=== PATIENT | male | born 1990 | race Hispanic/Latino ===

== ENCOUNTER 2024-05-25 15:15 | Emergency (ER) | payer BC ==
[2024-05-25 15:59] LABS: Absolute Basophils 0.1 K/uL (0-0.5); Absolute Eosinophils 0.2 K/uL (0-0.5); Absolute Lymphocytes (CBC) 1.6 K/uL (0.7-4.9); Absolute Monocytes 0.6 K/uL (0.1-1.3); Absolute Neutrophil 10.7 K/uL (1.8-8.0); Basophils % 0.6 % (0-1.3); Eosinophils % 1.4 % (0-4.4); Hematocrit 47.1 % (39.6-49.0); Hemoglobin 16.1 g/dL (13.6-17.9); MCH 29.6 pg (27.0-35.0); MCHC 34.2 g/dL (32.0-36.0); MCV 86.5 fL (80-100); MPV 8.5 fL (7.6-11.3); Monocytes % 4.7 % (3.3-12.3); Neutrophils % 81.3 % (41.7-73.7); Platelets 295 thou/uL (152-406); RBC Red Blood Cell Count 5.45 M/uL (4.33-5.43); Red Cell Distribution Width 13.7 % (12.1-15.2)
--- NOTE | 2024-05-25 15:59 | RAD REPORT ---
EXAM: Chest Single View HISTORY: CHEST PAIN COMPARISON: None. FINDINGS: LUNGS/PLEURA: The lungs are clear. No pleural effusions or pneumothorax. No pulmonary edema. MEDIASTINUM: The mediastinal silhouette is within normal limits. CARDIAC: The cardiac silhouette is within normal limits. UPPER ABDOMEN: No significant abnormality. BONES: No acute abnormality. LINES/TUBES/OTHER: N/A IMPRESSION: No evidence of acute cardiopulmonary disease.
[2024-05-25 16:16] LABS: ALT/SGPT 31 U/L (16-61); AST/SGOT 21 U/L (15-37); Albumin 4.2 g/dL (3.4-5.0); Albumin/Globulin Ratio 1.2 (1.1-1.8); Alkaline Phosphatase 68 U/L (45-117); Anion Gap 10.8 mEq/L (5.0-15.0); BUN Blood Urea Nitrogen 12 mg/dL (7-18); Bicarbonate 25 mEq/L (21-32); Bilirubin Total 0.7 mg/dL (0.2-1.0); Globulin 3.6 g/dL (2.3-3.5); Glomerular Filtration Rate 106 ml/min (=/>90); Glucose Level 121 mg/dL (74-106); Potassium 3.8 mEq/L (3.5-5.1); Protein, Total 7.8 g/dL (6.4-8.2); Sodium Level 138 mEq/L (136-145)
[2024-05-25 16:17] LABS: NT PRO-BNP < 5 pg/mL (<125); Troponin High Sensitivity < 3.0 pg/mL (<58.9)
[2024-05-25] MEDS ORDERED: ONDANSETRON 4 MG/2 ML VIAL ONE (18:09)
[2024-05-25] MEDS ORDERED: MAGNES/ALUMIN/SIMET 30ML UCUP ONE (18:10)
[2024-05-25] MEDS ORDERED: MORPHINE 4 MG/ML SYR ONE (18:10)
[2024-05-25] MEDS ORDERED: LIDOCAINE VISCOUS 2% 10ML ORAL SOLN ONE (18:10)
[2024-05-25 18:34] LABS: SARS-CoV-2 Antigen CONTROL BLUE LINE VIS/BG OK; SARS-CoV-2 Antigen Rapid Res Negative (Negative)
--- NOTE | 2024-05-25 18:41 | EDPHYS ---
Physician Documentation [facility] Name: Chinedu Maldonado Age: 33 yrs Sex: Male : 1990 Arrival Date: 05/25/2024 Time: 15:15 Bed 9 Private MD: ED Physician Kurtis Casas HPI: 05/25 19:45 This 33 yrs old Male presents to ER via Ambulatory with complaints of Chest dr5 Pressure, CLAMY HANDS. 19:45 Patient is a 33-year-old male with no past medical history coming in with sudden onset dr5 of chest pressure with feelings of chills. Patient reports this is never had before in the past. 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 Historical: - Allergies: 15:24 No Known Allergies; ap3 - Home Meds: 15:24 None [Active]; ap3 - PMHx: 15:24 None; ap3 - Immunization history:: Client reports receiving the 2nd dose of the Covid vaccine, Flu vaccine is not up to date. - Infectious Disease History:: Denies. - Social history:: Smoking status: Reported history of juuling and/or vaping. ROS: 19:45 Constitutional: as per hpi dr5 Exam: 19:45 Constitutional: This is a well developed, well nourished patient who is awake, alert, dr5 and in no acute distress. Head/Face: Normocephalic, atraumatic. Eyes: Pupils equal round and reactive to light, extra-ocular motions intact. Lids and lashes normal. Conjunctiva and sclera are non-icteric and not injected. Cornea within normal limits. Periorbital areas with no swelling, redness, or edema. Neck: Trachea midline, no thyromegaly or masses palpated, and no cervical lymphadenopathy. Supple, full range of motion without nuchal rigidity, or vertebral point tenderness. No Meningismus. Chest/axilla: Normal chest wall appearance and motion. Nontender with no deformity. No lesions are appreciated. Cardiovascular: Regular rate and rhythm with a normal S1 and S2. Normal PMI, no JVD. No pulse deficits. Respiratory: Lungs have equal breath sounds bilaterally, clear to auscultation. No rales, rhonchi or wheezes noted. No increased work of breathing, no retractions or nasal flaring. Back: No spinal tenderness. No costovertebral tenderness. Full range of motion. Skin: Warm, dry with normal turgor. Normal color with no rashes, no lesions, and no evidence of cellulitis. Neuro: Awake and alert, GCS 15, oriented to person, place, time, and situation. Cranial nerves II-XII grossly intact. Motor strength 5/5 in all extremities. Sensory grossly intact. Cerebellar exam normal. Normal gait. Vital Signs: 15:22 BP 137 / 84; Pulse 84; Resp 16; Temp 98.9(O); Pulse Ox 98% on R/A; Weight 91.63 kg; ap3 Height 6 ft. 4 in. ; Pain 0/10; 15:22 Body Mass Index 24.59 (91.63 kg, 193.04 cm) ap3 15:22 Pain Scale: Adult ap3 MDM: 15:20 Medical Screening Exam initiated dr5 19:45 Differential diagnosis: viral Infection, bacterial infection, URI, ACS, GERD. Data dr5 reviewed: vital signs, nurses notes. I considered the following discharge prescriptions or medication management in the emergency department Medications were administered in the Emergency Department. See MAR. Care significantly affected by the following Social Determinants of Health: Poor access to healthcare and/or lack of insurance, Poor access to transportation, Problems related to employment. Counseling: I had a detailed discussion with the patient and/or guardian regarding the historical points, exam findings, and any diagnostic results supporting the discharge/admit diagnosis, the presence of at least one elevated blood pressure reading (>120/80) during this emergency department visit, the need for outpatient follow up, for definitive care, a family practitioner, a route delivery clerk, to return to the emergency department if symptoms worsen or persist or if there are any questions or concerns that arise at home. Medication response: GI Cocktail relieved the patient's pain. The symptoms have resolved. ED course: GI cocktail given with resolution of symptoms. Will give patient PPI to help with GERD. Recommended Pepcid as needed. Recommended patient follow-up with primary care doctor this week and GI if needed. Patient is feeling much better on discharge. No complaints. Blood work is unremarkable. All questions answered.. 05/25 15: Order name: CBC with Diff; Complete Time: 16:08 dr5 05/25 15:22 Order name: NT PRO-BNP; Complete Time: 16:36 dr5 05/25 15:22 Order name: Troponin HS; Complete Time: 16:36 [facility] 05/25 15:22 Order name: CMP; Complete Time: 16:36 [facility] 05/25 16:37 Order name: SARS RAPID; Complete Time: 18:38 [facility] 05/25 16:37 Order name: Influenza Screen (a \T\ B); Complete Time: 18:38 [facility] 05/25 15:22 Order name: XRAY Chest (1 view); Complete Time: 16:00 [facility] 05/25 15:22 Order name: EKG - Nurse/Tech; Complete Time: 15:43 [facility] 05/25 15:22 Order name: IV Saline Lock; Complete Time: 15:43 [facility] 05/25 15:22 Order name: Labs collected and sent; Complete Time: 15:43 [facility] 05/25 15:22 Order name: O2 Per Protocol; Complete Time: 18:52 [facility] 05/25 15:22 Order name: O2 Sat Monitoring; Complete Time: 18:52 dr5 EC:34 Rate is 85 beats/min. Rhythm is regular. QRS Bradley is Normal. RI interval is normal at dr5 134 msec. QRS interval is normal at 96 msec. QT interval is normal at 350 msec. Administered Medications: 18:15 Drug: GI Cocktail without - (Maalox PO 30 ml, Lidocaine Mucous Membrane 2 % 15 ap3 ml) PO once Route: PO; 18:57 Follow up: Response: No adverse reaction 7 18:15 Not Given (Patient Refused): morphineor iv 4 mg IVP once over 4 mins ap3 18:15 Not Given (Patient Refused): ondansetron 4 mg IVP once; over 2 minutes ap3 Disposition: 05/26 14:21 Co-signature as Attending Physician, Kurtis Casas MD I agree with the assessment and cesar plan of care. Disposition Summary: 05/25/24 18:40 Discharge Ordered Notes: Location: Home dr5 Condition: Stable dr5 Diagnosis - Gastro-esophageal reflux disease without esophagitis dr5 Followup: dr5 - With: Emergency Department - When: As needed - Reason: Worsening of condition Followup: dr5 - With: Private Physician - When: 1 - 2 days - Reason: Recheck today's complaints, Continuance of care, Re-evaluation by your physician Discharge Instructions: - Discharge Summary Sheet dr5 - Gastroesophageal Reflux Disease, Adult, [id number] dr5 Forms: - Work release form bd - Medication Reconciliation Form dr5 - Patient Portal Instructions dr5 - Leadership Thank You Letter dr5 Prescriptions: - Protonix 40 mg Oral Tablet - take 1 tablet ORAL route once daily; 30 tablet; Refills: 0, Product Selection dr5 Permitted Signatures: Dispatcher [employer] Kurtis Quinteros MD MD cha Prokisch, Amanda, RN RN ap3 Pedro Verde, CHEMICAL RESEARCH ENGINEER-C CHEMICAL RESEARCH ENGINEER-[facility]5 Yuri Alfaro RN jl7
--- NOTE | 2024-05-25 18:41 | ER ---
Nurse's Notes [facility] Name: Chinedu Maldonado Age: 33 yrs Sex: Male : 1990 Arrival Date: 05/25/2024 Time: 15:15 Bed 9 Private MD: Diagnosis: Gastro-esophageal reflux disease without esophagitis Presentation: 05/25 15:22 Chief complaint: Patient states: "i got a random flood of vibrations in my body and i ap3 got really clammy at about one oclock" patient denies any chest pain. patient states this has never happened before. Coronavirus screen: At this time, the client does not indicate any symptoms associated with coronavirus-19. Ebola Screen: No symptoms or risks identified at this time. Initial Sepsis Screen:. Initial Sepsis Screen: Does the patient meet any 2 criteria? No. Patient's initial sepsis screen is negative. Does the patient have a suspected source of infection? No. Patient's initial sepsis screen is negative. Risk Assessment: Do you want to hurt yourself or someone else? Patient reports no desire to harm self or others. Onset of symptoms was May 25, 2024 at 13:00. 15:22 Method Of Arrival: Ambulatory ap3 15:22 Acuity: DEJAH 2 ap3 Triage Assessment: 15:25 General: Appears in no apparent distress. Behavior is calm, cooperative, appropriate ap3 for age. Pain: Denies pain. Neuro: Level of Consciousness is awake, alert, obeys commands, Oriented to person, place, time, situation. Cardiovascular: Reports chest pressure Patient's skin is warm and dry. Respiratory: Airway is patent Respiratory effort is even, unlabored, Respiratory pattern is regular, symmetrical. Historical: - Allergies: 15:24 No Known Allergies; ap3 - Home Meds: 15:24 None [Active]; ap3 - PMHx: 15:24 None; ap3 - Immunization history:: Client reports receiving the 2nd dose of the Covid vaccine, Flu vaccine is not up to date. - Infectious Disease History:: Denies. - Social history:: Smoking status: Reported history of juuling and/or vaping. Screenin:25 [facility] ED Fall Risk Assessment (Adult) History of falling in the last 3 months, ap3 including since admission No falls in past 3 months (0 pts) Confusion or Disorientation No (0 pts) Intoxicated or Sedated No (0 pts) Impaired Gait No (0 pts) Mobility Assist Device Used No (0 pt) Altered Elimination No (0 pt) Score/Fall Risk Level 0 - 2 = Low Risk Oriented to surroundings, Maintained a safe environment, Educated pt \\T\\ family on fall prevention, incl call for assistance when getting out of bed, Assessed \\T\\ reinforced patient's understanding of fall precautions, Hourly rounding (assess needs \\T\\ fall precautionary measures) done, Used ambulatory aids as needed (educated on \\T\\ assisted with), Used gait belt as appropriate. Abuse screen: Denies threats or abuse. Nutritional screening: No deficits noted. Tuberculosis screening: No symptoms or risk factors identified. Assessment: 18:57 Reassessment: Pt seen and discharged by ADRIENNE Vasquez. ss Vital Signs: 15:22 BP 137 / 84; Pulse 84; Resp 16; Temp 98.9(O); Pulse Ox 98% on R/A; Weight 91.63 kg; ap3 Height 6 ft. 4 in. ; Pain 0/10; 15:22 Body Mass Index 24.59 (91.63 kg, 193.04 cm) ap3 15:22 Pain Scale: Adult ap3 ED Course: 15:20 Patient arrived in ED. sj2 15:20 Pedro Verde FNP-C [facility]. dr5 15:20 Kurtis Casas MD is Attending Physician. dr5 15:24 Triage completed. ap3 15:26 Arm band placed on right wrist. ap3 15:26 Patient maintains SpO2 saturation greater than 95% on room air. ap3 15:44 CBC with Diff Sent. cc6 15:44 NT PRO-BNP Sent. cc6 15:44 Troponin HS Sent. cc6 15:44 Inserted saline lock: 20 gauge in right antecubital area, using aseptic technique. cc6 Blood collected. 15:44 Initial lab(s) drawn, by me, sent to lab. cc6 15:53 XRAY Chest (1 view) In Process Unspecified. EDMS 16:00 CBC with Diff Sent. cc6 16:00 NT PRO-BNP Sent. cc6 16:00 Troponin HS Sent. cc6 18:52 Yuri Alfaro, CHRISTIANO is Primary Nurse. jl7 18:57 No provider procedures requiring assistance completed. IV discontinued, intact, ss bleeding controlled, No redness/swelling at site. Pressure dressing applied. 18:58 Patient has correct armband on for positive identification. jl7 Administered Medications: 18:15 Drug: GI Cocktail without - (Maalox PO 30 ml, Lidocaine Mucous Membrane 2 % 15 ap3 ml) PO once Route: PO; 18:57 Follow up: Response: No adverse reaction jl7 18:15 Not Given (Patient Refused): morphineor iv 4 mg IVP once over 4 mins ap3 18:15 Not Given (Patient Refused): ondansetron 4 mg IVP once; over 2 minutes ap3 Medication: 18:58 VIS not applicable for this client. jl7 Outcome: 18:40 Discharge ordered by . margarita 18:57 Discharged to home ambulatory, 18:57 Condition: good 18:57 Discharge instructions given to patient, discharge instructions given by Pedro, GREASE MACHINE WORKER Instructed on discharge instructions, follow up and referral plans. Demonstrated understanding of instructions, follow-up care, 18:57 Patient left the ED. ss Signatures: Dispatcher [employer] EDMS Heather Norris RN RN ss Yuri Alfaro RN RN jl7 Jessica Morgan RN RN ap3 Brianna Walker cc6 Maureen Guthrie sj2 Pedro Verde, PROCESS MOLD TECHNICIAN-C PROCESS MOLD TECHNICIAN-Cdr5
[2024-05-25 23:34] VITALS: BP 137/84; TEMP 98.9; O2SAT 98
--- NOTE | 2024-05-27 12:33 | EKG ---
Test Date: 2024-05-25 Test Time: 15:34:57 Sales Representative Business Courses: [facility] MEASUREMENT RESULTS: Intervals: Rate: 85 LA: 134 QRSD: 96 QT: 350 QTc: 416 [place]: P: 76 LA: 134 QRS: 126 T: 65 INTERPRETIVE STATEMENTS: Normal sinus rhythm with sinus arrhythmia Right axis deviation Abnormal ECG Compared to ECG 03/27/2006 12:26:27 Right-axis deviation now present Electronically Signed On 05-27-24 12:30:51 [employer]OMAT[employer]RI[employer]ER by Cullen Hercules
== END 2024-05-25 18:57 | disposition home or self-care (01) ==
LOC: ER 15:15
DX: K21.9 Gastro-esophageal reflux disease without esophagitis (principal); Z11.52 Encounter for screening for COVID-19
CPT/HCPCS: 36415; 71045; 80053; 83880; 84484; 85025; 87804; 87811; 93005; 99284; J2405